=== PATIENT | female | born 1955 | race Caucasian/White ===

== ENCOUNTER 2024-02-27 07:49 | Day surgery (SDC) | payer MEDICARE, OTHER ==
[2024-02-23 09:49] VITALS: BP 121/70
[~2024-02-27] VITALS: Ht 170.2 cm; Wt 81.8 kg
[~2024-02-27 07:49] MED LIST: CEFAZOLIN SODIUM 2 GM/20 ML SYR IV SCH; DEXAMETHASONE SOD PHOS 4 MG/ML VIAL ONE; FAMOTIDINE 20 MG/ 2 ML VIAL ONE; HEParin SOD (PORCINE) 5,000 UNIT/ML SDV SUB-Q SCH; HYDROCHLOROTHIA50 MG PO; IBLOOD GLUCOSE TEST STRIP 1 EA TEST VI PRN; KETOROLAC TROMETHAMINE 30 MG/ML VIAL ONE; LACTATED RINGER'S 1,000 ML IV ONE; LACTATED RINGER'S 1,000 ML IV SCH; LIDOCAINE HCL 1% 5 ML SDV INJ ONE; LIDOCAINE HCL 4% 5 ML AMP ONE; LIPITOR20 MG PO; LOSARTAN POTASS25 MG PO; METOCLOPRAMIDE HCL 10 MG/2 ML SDV ONE; MIDAZOLAM HCL 2 MG/2 ML VIAL ONE; ROCURONIUM BROMIDE 50 MG/5 ML SYR ONE; SUCCINYLCHOLINE IN 0.9% NACL 200 MG/10 ML SYRINGE ONE; SUGAMMADEX SODIUM 200 MG/2 ML ML ONE; TRAZODONE HCL150 MG PO; fentaNYL citrate 100 MCG/2 ML VIAL ONE; ondansetron HCL 4 MG/2 ML VIAL ONE; propofoL 200 MG/20 ML VIAL ONE
[2024-02-27 08:02] VITALS: BP 146/85
[2024-02-27] MEDS ORDERED: PROCHLORPERAZINE EDISYLATE 10 MG/2 ML VIAL IV PRN (08:30)
[2024-02-27] MEDS ORDERED: fentaNYL citrate 50 MCG/ML SDV IV PRN (08:30)
[2024-02-27] MEDS ORDERED: MORPHINE SULFATE 10 MG/ML VIAL IV PRN (08:30)
[2024-02-27] MEDS ORDERED: ondansetron HCL 4 MG/2 ML VIAL IV PRN (08:30)
[2024-02-27] MEDS ORDERED: droPERidol 5 MG/2 ML VIAL IV PRN (08:30)
[2024-02-27] MEDS ORDERED: NALOXONE HCL 0.4 MG SYR IV PRN ×2 (08:30→10:30)
[2024-02-27] MEDS ORDERED: IBLOOD GLUCOSE TEST STRIP 1 EA TEST VI PRN (08:30)
[2024-02-27] MEDS ORDERED: METOCLOPRAMIDE HCL 10 MG/2 ML SDV IV PRN (08:30)
--- NOTE | 2024-02-27 10:20 | EKG ---
[facility] [address] [facility] [place], [place] [address] Signed Sinus bradycardia Otherwise normal ECG No previous ECGs available Confirmed by Elia Owens DO ([id number]) on 02/27/2024 10:20:28 AM Electronically Signed By: ELIA OWENS DO 02/27/24 1020 PATIENT NAME: EMERALD TERRY Electrocardiogram DATE OF : 57 PHYSICIAN: ELIA OWENS DO REPORT #: [id number] REPORT IS CONFIDENTIAL AND NOT TO BE RELEASED WITHOUT AUTHORIZATION
--- NOTE | 2024-02-27 10:24 | NUR ---
02/27/24 Marlee Kimble 1011-PT ARRIVES TO PACU RESTING SEMI FOWLERS, PT NON RESPONSIVE TO NOXIOUS STIMULI, VSS ON 10L VIA MASK AND OPA INPLACE, PT REQUIRING MANUAL JAW THRUST AT THIS TIME, RR EVEN AND UNLABORED. 1016-PT AWAKENS ON OWN, OPA REMOVED AND PT TITRATED TO RA. VSS, RR EVEN AND UNLABORED. PT DENIES PAIN OR NAUSEA.
[2024-02-27] MEDS ORDERED: IBUPROFEN600 MG PO (10:25)
[2024-02-27] MEDS ORDERED: ACETAMINOPHEN500 MG PO (10:25)
[2024-02-27] MEDS ORDERED: OXYCODON-ACETA1 EAC2 PO (10:25)
[2024-02-27] MEDS ORDERED: LACTATED RINGER'S 1,000 ML IV SCH (10:30)
[2024-02-27] MEDS ORDERED: ACETAMINOPHEN 500 MG TAB PO PRN (10:30)
[2024-02-27] MEDS ORDERED: OXYCODONE/APAP 7.5/325 TAB PO PRN (10:30)
[2024-02-27] MEDS ORDERED: IBUPROFEN 600 MG TAB PO PRN (10:30)
[2024-02-27 10:37] VITALS: BP 112/64
--- NOTE | 2024-02-27 10:45 | NUR ---
1037-PT ARRIVED BACK TO DS AAOX3 ON RA. PT ANSWERING QUESTIONS APPROPRIATELY AND IS ABLE TO MAKE HER NEEDS KNOWN. PTS IN ROOM UPON ARRIVAL. PT NOTED TO BE SIPPING ON ICE WATER UPON ARRIVAL WELL. REPORT RECEIVED FROM DIE DESIGNER APPRENTICE AND SURGICAL SITE OBSERVED WITH DIE DESIGNER APPRENTICE. PT NOTED WITH SMALL AMT OF SHADOWING NOTED ON SURGICAL DRESSING AT THE BASE. VS TAKEN. IV SITE ASSESSED. PT DENIES NAUSEA WHEN ASKED AND REPORTS PAIN TO BE AT 2/10 AND DESCRIBES "JUST SORENESS". PT DENIES NEED FOR FURTHER PAIN MANAGEMENT AT THIS TIME, REPORTING PAIN TO BE TOLERABLE. PT PROVIDED JELLO, ICE WATER, AND CRACKERS. ALL QUESTIONS ANSWERED. HARD COPY RX GIVEN TO PTS . PTS LEFT TO HAVE RX FILLED. CALL LIGHT WITHIN PT REACH, BED IN LOW POSITION, WHEELS LOCKED, BILAT RAILS IN PLACE.
--- NOTE | 2024-02-27 11:29 | OR ---
[facility] [address] [place], [place] [address] Signed DATE OF OPERATION: 02/27/2024 SURGEON: Lashae Szymanski MD PREOPERATIVE DIAGNOSIS: Supraumbilical hernia, symptomatic. POSTOPERATIVE DIAGNOSIS: Incarcerated supraumbilical hernia (properitoneal fat), 2 cm defect. PROCEDURES: 1. Repair of supraumbilical incarcerated hernia, 2 cm defect. 2. Implantation of Prolene mesh, underlay technique. ANESTHESIA: General endotracheal; Lashae Chi CRNA and local 10 mL of 0.25% Marcaine with epinephrine. INDICATIONS FOR THE PROCEDURE: This 68-year-old white woman is a patient of Dr. Kenny Archuleta of [place], [place]. The patient formerly lived in [place], now lives in [facility]. She is found to have a symptomatic painful mass in the supraumbilical area consistent with supraumbilical hernia. The mass has been present for at least six months. She has history of cholecystectomy and hysterectomy, but this does not appear to be an incisional hernia. She is admitted at this time to undergo repair of the hernia; understands the risk of bleeding, infection, recurrence, and other unforeseen complications. Understanding that, she wished to proceed. FINDINGS: There was a transversely oriented fascial defect in the supraumbilical area, found with an incarcerated hernia, which included properitoneal fat that measured approximately 4 cm. The fascial defect itself was measured at 2 cm. Implantation of Prolene mesh was undertaken in an underlay technique and transverse reapproximation of the fascia undertaken as well. She tolerated the procedure well. DESCRIPTION OF PROCEDURE: The patient was brought to the operating room, given general endotracheal anesthetic. She received preoperative antibiotic, Ancef. Sequential compression device stockings were used and heparin subcutaneously administered. The abdomen was prepped with chlorhexidine solution and draped sterilely. At least four fingerbreadths above the Electronically Signed By: LASHAE SZYMANSKI MD 02/27/24 1129 PATIENT NAME: EMERALD TERRY OPERATIVE REPORT DATE OF : 57 REPORT #: [id number] PHYSICIAN: LASHAE SZYMANSKI MD PCP: KENNY ARCHULETA DO REPORT IS CONFIDENTIAL AND NOT TO BE RELEASED WITHOUT AUTHORIZATION [facility] [address] [place], [place] [address] Signed umbilicus, a vertical incision was made. Dissection was carried through the subcutaneous tissue ultimately identifying herniated viscus. It was dissected free circumferentially, identifying the fascial defect was transversely oriented. Further dissection of the herniated contents showed it to be properitoneal fat. With various manipulations, it was reduced to the properitoneal space. The properitoneal space was bluntly for at least 4 cm circumferentially. A segment of ProGrip Prolene mesh was cut to an elliptical configuration and inserted into the properitoneal space and secured laterally with two interrupted 0-Prolene sutures. The fascia was then reapproximated over the mesh with interrupted horizontal mattress Prolene suture. A 10 mL of 0.25% Marcaine with epinephrine was injected locally. Santiago layer was reapproximated with interrupted 2-0 Vicryl and skin closed with running subcuticular 3-0 Vicryl. Steri-Strips were applied as was an Acticoat dressing. Sponge, needle, and instrument counts reported as correct x3. Lashae Szymanski MD JM/MODL /[id number] cc: Dr. Kenny Archuleta [facility] Copies: ~ Electronically Signed By: LASHAE SZYMANSKI MD 02/27/24 1129 PATIENT NAME: EMERALD TERRY OPERATIVE REPORT DATE OF : 57 REPORT #: [id number] PHYSICIAN: LASHAE SZYMANSKI MD PCP: KENNY ARCHULETA DO REPORT IS CONFIDENTIAL AND NOT TO BE RELEASED WITHOUT AUTHORIZATION
[2024-02-27 11:33] VITALS: BP 132/62
--- NOTE | 2024-02-27 11:50 | NUR ---
1130-INTO PTS ROOM FOR ROUTINE REASSESSMENT. VS TAKEN. IV SITE ASSESSED AND SL'D. SURGICAL SITE OBSERVED. NO ACUTE CHANGES NOTED FROM PREVIOUS ASSESSMENT. PT REPORTS PAIN IN SURGICAL SITE AT 4/10 AND REQUESTING PAIN MEDICATION. PT DENIES NAUSEA AND HAS BEEN EATING AND DRINKING W/O ISSUES NOTED/REPORTED. 1137-PO PAIN MEDS GIVEN. PT REQUESTING TO USE RESTROOM. PT PROVIDED EXTRA PILLOW FOR HOLDING OVER ABD FOR POSITION CHANGES AND EDUCATED ON TECHNIQUE. PT DEMONSTRATED UNDERSTANDING. 1140-PT AMBULATED TO RESTROOM WITH RN SBA FOR SAFETY. PT ABLE TO VOID APPROX 400 ML OF CLR, YELLOW URINE. 1145-SURGICAL SITE OBSERVED POST AMBULATION AND REMAINS W/O CHANGES NOTED. PT PROVIDED CALL LIGHT AND PERSONAL BELONINGS AND IS DRESSING FOR UPCOMING DISCHARGE. ALL QUESTIONS ANSWERED. BED IN LOW POSITION WITH WHEELS LOCKED.
--- NOTE | 2024-02-27 12:05 | NUR ---
1150-INTO PTS ROOM FOR DISCHARGE EDUCATION. PT EDUCATED ON WOUND CARE, WHEN TO REMOVE DRESSING WITH EMPHASIS PLACED ON LEAVING STERI STRIPS IN PLACE AND ALLOWING THEM TO FALL OFF NATURALLY. DISCUSSED RXS AND LIFTING AND ACTIVITY RESTRICTIONS. PT ALSO ADVISED TO CALL DR. SZYMANSKI'S OFFICE ON FRIDAY MORNING TO SCHEDULED HER POST-OP APPT. PT VERBALIZED UNDERSTANDING AND ALL QUESTIONS WERE ANSWERED. 1200-IV REMOVED, TIP OBSERVED TO BE INTACT. PRESSURE DRSG APPLIED WITH GAUZE AND COBAN. 1205-PTS RETURNED FROM PHARMACY AND IS PULLING VEHICLE AROUND TO FRONT OF HOSPITAL.
--- NOTE | 2024-02-27 12:10 | NUR ---
PT DISCHARGE FROM DS VIA WC TO PASSENGER SIDE OF HUSBANDS VEHICLE WITH ALL PERSONAL BELONINGS.
[2024-02-27] MEDS ORDERED: SEVOFLURANE 250 ML BTL INH ONE (13:33)
== END 2024-02-27 12:10 | disposition home or self-care (01) ==
LOC: DS 07:49
PROVIDERS: ATTEND Surgery
PROC: 0WUF0JZ Supplement Abdominal Wall with Synthetic Substitute, Open Approach (ICD-10-PCS; principal; 2024-02-27 09:40)
DX: K43.6 Other and unspecified ventral hernia with obstruction, without gangrene (principal); I10 Essential (primary) hypertension; Z79.899 Other long term (current) drug therapy; Z87.891 Personal history of nicotine dependence; Z90.49 Acquired absence of other specified parts of digestive tract; Z90.710 Acquired absence of both cervix and uterus
CPT/HCPCS: 00750; 93005; 93010; C1781; J0330; J0690; J1100; J1644; J1885; J2250; J2405; J2704; J2765; J3010; J3490; J7121